=== PATIENT | female | born 1945 | race Caucasian/White ===

== ENCOUNTER → 2018-03-06 | Outpatient (REF) ==
[~2018-03-06] MED LIST: ALPARAZOLAM0.5 MG PO; ASPIRIN 32325 MG/TAB PO; LEVOXYL0.05 MG PO; LOPRESSOR 225 MG/TAB PO; METOPROLOL TART25 MG PO; NITROSTAT0.4 MG/TAB SL; OMEGA 31000 MG PO; PLAVIX 75MG TAB75 MG PO; PRAVACHOL 40MG40 MG PO; PRAVACHOL80 MG PO; PRILOSEC 20MG20 MG PO; PROVENTIL0.09 MG/A1 IH; TOPROL XL25 MG PO; ZESTORETIC 12.51 TA1 PO
[2018-03-06 16:47] LABS: THYROID STIMULATING HORMONE 3.88 uIU/mL (0.465-4.680)
== END ==
LOC: ZLAB.WCH 15:51
PROVIDERS: Physician Assistant
DX: Z01.89 Encounter for other specified special examinations (principal)